=== PATIENT | male | born 1985 ===

== ENCOUNTER 2020-01-20 07:43 | Emergency (ER) | payer SELFPAY ==
[~2020-01-20] VITALS: Ht 190.5 cm; Wt 83.0 kg
--- NOTE | 2020-01-20 09:06 | NUR ---
PT AMBULATORY TO ROOM, ERP TO BEDSIDE, NO SIGNS OF DISTRESS.
--- NOTE | 2020-01-20 09:23 | NUR ---
PT USING HOSPITAL PHONE TO CONTACT HIS SIGNIFICANT OTHER TO UPDATE HER.
[2020-01-20 09:26] LABS: BASOPHILS # (AUTO) 0.05 x10^3/uL (0-0.1); BASOPHILS % (AUTO) 1 % (0-1); EOSINOPHILS # (AUTO) 0.22 x10^3/uL (0-0.4); EOSINOPHILS % (AUTO) 3 % (1-7); LYMPHOCYTES # (AUTO) 2.13 x10^3/uL (1-3.4); LYMPHOCYTES % (AUTO) 30 % (22-44); MD NO; MEAN CORPUSCULAR HEMOGLOBIN 34.5 pg (27.5-34.5); MEAN CORPUSCULAR VOLUME 104.4 fL (81-97); MEAN PLATELET VOLUME 7.6 fL (7.4-10.4); MONOCYTES # (AUTO) 1.13 x10^3/uL (0.2-0.8); MONOCYTES % (AUTO) 16 % (2-9); NEUTROPHILS # (AUTO) 3.64 x10^3/uL (1.8-6.8); NEUTROPHILS % (AUTO) 51 % (42-75); PLATELET COUNT 132 x10^3/uL (130-400)
[2020-01-20 09:34] LABS: ALANINE AMINOTRANSFERASE 297 U/L (12-78); ALBUMIN 3.5 g/dL (3.4-5.0); ANION GAP 6 mmol/L (5-15); CALCIUM 8.5 mg/dL (8.5-10.1); CHLORIDE 110 mmol/L (98-107); CREATININE 1.01 mg/dL (0.7-1.3)
--- NOTE | 2020-01-20 09:35 | NUR ---
PT RETURNED TO ROOM FOR LAB TO DRAW BLOOD, PT BACK IN HALLWAY USING PHONE.
[2020-01-20 09:41] LABS: ALKALINE PHOSPHATASE 154 U/L (45-117); BILIRUBIN,TOTAL 1.2 mg/dL (0.2-1.0); TOTAL PROTEIN 8.7 g/dL (6.4-8.2)
[2020-01-20 10:12] LABS: INTERNATIONAL NORMALIZED RATIO 1.28 (0.93-1.1)
--- NOTE | 2020-01-20 10:12 | NUR ---
PT SITTING IN BED, NO SIGNS OF DISTRESS, WILL CONTINUE TO MONITOR.
[2020-01-20 10:26] LABS: PROTHROMBIN TIME 13.6 Seconds (9.6-11.5)
--- NOTE | 2020-01-20 11:01 | NUR ---
PT CONDITION UNCHANGED.
[2020-01-20 11:11] VITALS: BP 150/90
== END 2020-01-20 11:14 | disposition home or self-care (01) ==
LOC: ED 08:30
DX: K29.20 Alcoholic gastritis without bleeding (principal); F10.10 Alcohol abuse, uncomplicated; R74.0 Nonspecific elevation of levels of transaminase and lactic acid dehydrogenase [LDH]; Y90.9 Presence of alcohol in blood, level not specified
CPT/HCPCS: 36415; 80053; 83690; 85025; 85610; 85730; 99283